=== PATIENT | female | born 1970 | race African-American/Black ===

== ENCOUNTER 2021-08-24 10:31 | Emergency (ER) | payer MEDICARE | END 2021-08-24 11:35 | disposition home or self-care (01) | LOC: ERS 10:31 | DX: K03.81 Cracked tooth (principal); K02.9 Dental caries, unspecified | CPT/HCPCS: 99282 ==

== ENCOUNTER 2022-07-18 13:42 | Emergency (ER) | payer MEDICARE | END 2022-07-18 14:55 | disposition home or self-care (01) | LOC: ERS 13:42 | DX: K04.7 Periapical abscess without sinus (principal) | CPT/HCPCS: 96372; 99282 ==

== ENCOUNTER 2023-02-01 10:47 | Emergency (ER) | payer MEDICAID, MEDICARE, OTHER ==
[2023-02-01] MEDS ORDERED: Ketorolac Tromethamine 30 MG/ML VIAL ONE (13:01)
== END 2023-02-01 14:01 | disposition home or self-care (01) ==
LOC: ERS 10:47
DX: M54.50 Low back pain, unspecified (principal)
CPT/HCPCS: 72100; 72220; 96372; J1885